=== PATIENT | female | born 1990 | race Caucasian/White ===

== ENCOUNTER 2024-06-10 14:42 | Observation (INO) | payer BC ==
[2024-06-10] MEDS ORDERED: NA CHLORIDE 0.9% 1,000 ML ONE (15:20)
[2024-06-10] MEDS ORDERED: KETOROLAC 30 MG/ML INJ ONE (15:20)
[2024-06-10] MEDS ORDERED: ONDANSETRON 4 MG/2 ML VIAL ONE ×2 (15:20→18:13)
[2024-06-10 15:24] LABS: Absolute Monocytes 0.9 K/uL (0.1-1.3); Absolute Neutrophil 14.7 K/uL (1.8-8.0); Basophils % 0.2 % (0-1.3); Eosinophils % 0.3 % (0-4.4); Hematocrit 39.9 % (36.0-45.0); Hemoglobin 13.7 g/dL (12.0-15.0); Lymphocytes % 5.9 % (15.3-44.8); MCH 31.5 pg (27.0-35.0); MCHC 34.3 g/dL (32.0-36.0); MCV 91.9 fL (80-100); MPV 8.2 fL (7.6-11.3); Monocytes % 5.5 % (3.3-12.3); Neutrophils % 88.1 % (41.7-73.7); Platelets 265 thou/uL (152-406); RBC Red Blood Cell Count 4.34 M/uL (3.86-4.86); Red Cell Distribution Width 12.4 % (12.1-15.2)
[2024-06-10 15:45] LABS: Albumin 3.9 g/dL (3.4-5.0); Albumin/Globulin Ratio 1.1 (1.1-1.8); Anion Gap 7.3 mEq/L (5.0-15.0); Bilirubin Total 1.8 mg/dL (0.2-1.0); Globulin 3.4 g/dL (2.3-3.5); Potassium 3.3 mEq/L (3.5-5.1); Protein, Total 7.3 g/dL (6.4-8.2)
[2024-06-10 16:13] LABS: Band Neutrophils 3 % (0-1); Differential Total Cells Count 100; Lymphocytes 5 % (15-42); Monocytes 10 % (0-10); Segmented Neutrophils 82 % (40-80); Toxic Granulation 1+
[2024-06-10 16:14] LABS: Blood Morphology Comment NOT SEEN (NOT SEEN); Platelet Estimate ADEQ
[2024-06-10 16:31] LABS: Specific Gravity 1.019 (1.005-1.030)
[2024-06-10 16:32] LABS: Specific Gravity 1.019 (1.005-1.030); Sqamous Epithelial <5 /HPF (None Seen); Urine Bacteria <20 /HPF (<20); Urine Bilirubin NEGATIVE (Negative); Urine Blood Negative (Negative); Urine Clarity Turbid (Clear); Urine Color Light-Yellow (Yellow); Urine Culture Reflex Order NOT NEEDED; Urine Glucose NEGATIVE (Negative); Urine Ketones TRACE (Negative); Urine Microscopic Reflex YN ORDER UMIC; Urine Mucus Slight /HPF (None Seen); Urine Nitrite NEGATIVE (Negative); Urine Protein NEGATIVE (Negative); Urine RBC <5 /HPF (None Seen); Urine Urobilinogen Normal (Normal); Urine WBC <5 /HPF (<5)
--- NOTE | 2024-06-10 16:39 | RAD REPORT ---
EXAMINATION: CT ABDOMEN AND PELVIS WITH CONTRAST CLINICAL INDICATION: ABD PAIN TECHNIQUE: CT abdomen and pelvis was performed, after the administration of IV contrast, as per [facility]. Axial, sagittal and coronal reconstructions were obtained. One or more of the following dose reduction techniques were used: Automated exposure control, adjustment of the mA and k V according to patient size, and iterative reconstruction. Unless otherwise specified, incidental findings do not require dedicated imaging follow-up. COMPARISON: No prior exam. FINDINGS: LOWER CHEST: The visualized lung bases are clear. LIVER: Normal in size and contour. No focal lesion. Cholelithiasis. SPLEEN: Normal size. No focal lesion. PANCREAS: No mass, ductal dilation, or carmen-pancreatic fluid. ADRENALS: Normal; no mass. KIDNEYS: Normal size and contour. No hydronephrosis. GASTROINTESTINAL TRACT: No evidence of free air, significant intra-abdominal free fluid, bowel obstru ction or abscess. APPENDIX: Appendix contains several appendicoliths as dilated to 12 mm. This is compatible with acut e appendicitis. LYMPH NODES: No lymphadenopathy. MUSCULOSKELETAL: No acute or suspicious osseous abnormality. ADDITIONAL FINDINGS: None. IMPRESSION: Acute appendicitis. Cholelithiasis.
[2024-06-10] MEDS ORDERED: NA CHLORIDE 0.9% 100 ML ONE (17:05)
[2024-06-10] MEDS ORDERED: PIPERACIL/TAZO 3.375 GM VIAL IV ONE (17:05)
--- NOTE | 2024-06-10 17:24 | EDPHYS ---
Physician Documentation [facility] Name: Celina Montano Age: 34 yrs Sex: Female : 1990 Arrival Date: 06/10/2024 Time: 14:42 Bed 9 Private MD: ED Physician Javid Ferrari HPI: 06/10 15:19 This 34 yrs old Female presents to ER via Ambulatory with complaints of Abdominal Pain. kb 15:19 Pt is a 34 year old female who presents for abd pain that started around 1030 this kb morning. States pain is causing nausea and making her feel like she is going to pass out. Denies vomiting, diarrhea, fever. States she has never had this pain before. . Historical: - Allergies: 15:02 Sulfa (Sulfonamide Antibiotics); cm10 - Home Meds: 14:59 BuSpar Oral [Active]; citalopram oral [Active]; cm10 - PMHx: 14:59 Depressive disorder; Anxiety; cm10 - Immunization history:: Adult Immunizations up to date. - Infectious Disease History:: Denies. - Social history:: Smoking status: Patient denies any tobacco usage or history of. ROS: 15:19 Constitutional: As per HPI kb Exam: 15:19 Head/Face: Normocephalic, atraumatic. ENT: Moist Mucous membranes Cardiovascular: kb Regular rate Respiratory: Respirations even and unlabored. No increased work of breathing. Talking in full sentences Skin: Warm, dry with normal turgor. Normal color. MS/ Extremity: Pulses equal, no cyanosis. Neurovascular intact. Full, normal range of motion. Neuro: Awake and alert, GCS 15, oriented to person, place, time, and situation. 15:19 Abdomen/GI: Inspection: abdomen appears normal, Bowel sounds: normal, Palpation: soft, in all quadrants, moderate abdominal tenderness, in the right lower quadrant, 15:21 Constitutional: The patient appears alert, awake, in obvious pain, kb Vital Signs: 14:58 BP 125 / 74; Pulse 81; Resp 18; Temp 97.7(TE); Pulse Ox 100% on R/A; Weight 72.57 kg; cm10 Height 5 ft. 4 in. ; Pain 9/10; 15:34 BP 127 / 78; Pulse 77; Resp 17; Pulse Ox 99% on R/A; rs5 18:20 BP 133 / 82; Pulse 80; Resp 17; Pulse Ox 99% on R/A; rs5 14:58 Body Mass Index 27.46 (72.57 kg, 162.56 cm) cm10 14:58 Pain Scale: Adult cm10 MDM: 14:44 Medical Screening Exam initiated kb 15:21 Data reviewed: vital signs, nurses notes. kb 16:49 Differential diagnosis: appendicitis, Ectopic , non-specific abd pain, Ovarian kb Torsion. Consideration of Admission/Observation Patient was admitted/placed on observation. Escalation of care including admission/observation considered. Counseling: I had a detailed discussion with the patient and/or guardian regarding the historical points, exam findings, and any diagnostic results supporting the discharge/admit diagnosis, lab results, radiology results, the need for further work-up and treatment in the hospital. 17:24 Management of patient was discussed with the following: Hospitalist: Dr Bell accepts pt kb for admission. Dobby Loom Fixer: Dr Weeks accepts pt for consult, will take to the OR. 06/10 15:02 Order name: CBC with Diff; Complete Time: 16:24 cm10 06/10 15:02 Order name: CMP; Complete Time: 15:52 cm10 06/10 15:02 Order name: Lipase; Complete Time: 15:52 cm10 06/10 15:02 Order name: Test, Urine; Complete Time: 16:34 cm10 06/10 15:02 Order name: Urinalysis w/ reflexes; Complete Time: 16:33 cm10 06/10 15:03 Order name: Test, Serum; Complete Time: 16:10 cm10 06/10 16:14 Order name: Manual Differential; Complete Time: 16:24 EDMS 06/10 18:27 Order name: CBC with Automated Diff EDMS 06/10 18:27 Order name: CBC with Automated Diff EDMS 06/10 18:27 Order name: Comprehensive Metabolic Panel EDMS 06/10 18:27 Order name: Comprehensive Metabolic Panel EDMS 06/10 18:27 Order name: Magnesium EDMS 06/10 18:27 Order name: Magnesium EDMS 06/10 18:27 Order name: Phosphorus EDMS 06/10 18:27 Order name: Phosphorus EDMS 06/10 15:02 Order name: CT Abd/Pelvis - IV Contrast Only; Complete Time: 16:46 cm10 06/10 18:27 Order name: CONS Physician Consult EDAL 06/10 15:02 Order name: IV Saline Lock; Complete Time: 15:19 cm10 06/10 15:02 Order name: Labs collected and sent; Complete Time: 15:19 cm10 06/10 16:49 Order name: NPO; Complete Time: 17:03 kb Administered Medications: 15:26 Drug: Ondansetron IVP 4 mg IVP once; over 2 minutes Route: IVP; Site: right antecubital;rs5 16:01 Follow up: Response: No adverse reaction rs5 15:26 Drug: NS 0.9% IV 1000 ml IV at 1 bolus Per protocol; to be given as a bolus over 60 rs5 minutes Route: IV; Rate: 1 bolus; Site: right antecubital; 16:33 Follow up: Response: No adverse reaction; IV Status: Completed infusion; IV Intake: rs5 1000ml 15:27 Drug: TORadol - Ketorolac IVP 15 mg IVP once Route: IVP; Site: right antecubital; rs5 16:01 Follow up: Response: No adverse reaction rs5 17:01 Drug: Piperacillin-Tazobactam IVPB 3.375 grams IVPB once over 60 mins; (mix in NS 100 rs5 mL) Route: IVPB; Infused Over: 60 mins; Site: right antecubital; 18:01 Follow up: Response: No adverse reaction rs5 Disposition: 06/11 07:43 Co-signature as Attending Physician, Javid Ferrari MD I reviewed the patient's care rn provided by the Advanced Practice Provider and agree with the diagnosis and treatment plan. Disposition Summary: 06/10/24 17:23 Hospitalization Ordered Notes: Hospitalization Status: Observation kb Provider: Minoo Bell Location: Telemetry/MedSurg (observation) kb Condition: Stable kb Problem: new kb Symptoms: are unchanged kb Bed/Room Type: Standard Room Assignment: kb Diagnosis - Unspecified acute appendicitis kb Forms: - Medication Reconciliation Form kb - SBAR form kb - Leadership Thank You Letter kb Signatures: Dispatcher [employer] [facility] Batsheva Rea FNP-C FNP-Javid Cole MD MD rn Sotelo, Ricky RN RN rs5 Liz Weeks RN RN cm10 Corrections: (The following items were deleted from the chart) 06/10 15:02 15:02 Abdomen Pelvis W Con+CT.RAD.BRZ ordered. EDMS EDMS 15:02 14:59 Allergies: No Known Allergies; cm10 cm10 15:21 15:19 Constitutional: This is a well developed, well nourished patient who is awake, kb alert, and in no acute distress. Head/Face: Normocephalic, atraumatic. ENT: Moist Mucous membranes Cardiovascular: Regular rate Respiratory: Respirations even and unlabored. No increased work of breathing. Talking in full sentences Skin: Warm, dry with normal turgor. Normal color. MS/ Extremity: Pulses equal, no cyanosis. Neurovascular intact. Full, normal range of motion. Neuro: Awake and alert, GCS 15, oriented to person, place, time, and situation. kb
--- NOTE | 2024-06-10 17:24 | ER ---
Nurse's Notes [facility] Name: Celina Montano Age: 34 yrs Sex: Female : 1990 Arrival Date: 06/10/2024 Time: 14:42 Bed 9 Private MD: Diagnosis: Unspecified acute appendicitis Presentation: 06/10 14:58 Chief complaint: Patient states: Abdominal pain that radiates up to the epigastric cm10 region onset this morning. Pt describes the pain as a sharp, burning, stabbing pain. Pt reports nausea. Coronavirus screen: Client denies travel out of the [place] in the last 14 days. Ebola Screen: Patient denies travel to an Ebola-affected area in the 21 days before illness onset. No symptoms or risks identified at this time. Initial Sepsis Screen: Does the patient meet any 2 criteria? No. Patient's initial sepsis screen is negative. Does the patient have a suspected source of infection? No. Patient's initial sepsis screen is negative. Risk Assessment: Do you want to hurt yourself or someone else? Patient reports no desire to harm self or others. Onset of symptoms was June 10, 2024. 14:58 Method Of Arrival: Ambulatory cm10 14:58 Acuity: ELMER 3 cm10 Triage Assessment: 15:00 General: Appears in no apparent distress. uncomfortable, Behavior is cooperative. cm10 Neuro: No deficits noted. Level of Consciousness is awake, alert, obeys commands, Oriented to person, place, time, situation, Appropriate for age. Respiratory: No deficits noted. Airway is patent Respiratory effort is even, unlabored, Respiratory pattern is regular, symmetrical. Historical: - Allergies: 15:02 Sulfa (Sulfonamide Antibiotics); cm10 - Home Meds: 14:59 BuSpar Oral [Active]; citalopram oral [Active]; cm10 - PMHx: 14:59 Depressive disorder; Anxiety; cm10 - Immunization history:: Adult Immunizations up to date. - Infectious Disease History:: Denies. - Social history:: Smoking status: Patient denies any tobacco usage or history of. Screenin:04 [place] ED Fall Risk Assessment (Adult) History of falling in the last 3 months, rs5 including since admission No falls in past 3 months (0 pts) Confusion or Disorientation No (0 pts) Intoxicated or Sedated No (0 pts) Impaired Gait No (0 pts) Mobility Assist Device Used No (0 pt) Altered Elimination No (0 pt) Score/Fall Risk Level 0 - 2 = Low Risk Oriented to surroundings, Maintained a safe environment. Abuse screen: Denies threats or abuse. Nutritional screening: No deficits noted. Tuberculosis screening: No symptoms or risk factors identified. Assessment: 15:05 General: Appears in no apparent distress. uncomfortable, Behavior is calm, cooperative. rs5 Pain: Complains of pain in abdomen Pain radiates to epigastric area Pain currently is 7 out of 10 on a pain scale. Quality of pain is described as aching, Pain began Is continuous. Neuro: Level of Consciousness is awake, alert, obeys commands, Oriented to person, place, time, situation. Cardiovascular: Patient's skin is warm and dry. Respiratory: Airway is patent Respiratory effort is even, unlabored, Respiratory pattern is regular, symmetrical. GI: Abdomen is round non-distended, Bowel sounds present X 4 quads. Abd is soft and non tender X 4 quads. : No signs and/or symptoms were reported regarding the genitourinary system. EENT: No signs and/or symptoms were reported regarding the EENT system. Derm: Skin is intact, Skin is pink, warm \T\ dry. Musculoskeletal: Range of motion: intact in all extremities. 15:34 Reassessment: Patient and/or family updated on plan of care and expected duration. Pain rs5 level reassessed. Patient is alert, oriented x 3, equal unlabored respirations, skin warm/dry/pink. 16:41 Reassessment: Patient and/or family updated on plan of care and expected duration. Pain rs5 level reassessed. Patient is alert, oriented x 3, equal unlabored respirations, skin warm/dry/pink. 17:39 Reassessment: Patient and/or family updated on plan of care and expected duration. Pain rs5 level reassessed. Patient is alert, oriented x 3, equal unlabored respirations, skin warm/dry/pink. 18:40 Reassessment: Patient and/or family updated on plan of care and expected duration. Pain rs5 level reassessed. Patient is alert, oriented x 3, equal unlabored respirations, skin warm/dry/pink. report given to OR nurse at bedside . Vital Signs: 14:58 BP 125 / 74; Pulse 81; Resp 18; Temp 97.7(TE); Pulse Ox 100% on R/A; Weight 72.57 kg; cm10 Height 5 ft. 4 in. ; Pain 9/10; 15:34 BP 127 / 78; Pulse 77; Resp 17; Pulse Ox 99% on R/A; rs5 18:20 BP 133 / 82; Pulse 80; Resp 17; Pulse Ox 99% on R/A; rs5 14:58 Body Mass Index 27.46 (72.57 kg, 162.56 cm) cm10 14:58 Pain Scale: Adult cm10 ED Course: 14:43 Patient arrived in ED. ra3 14:44 Batsheva Rea FNP-C is [facility]. kb 14:44 Javid Ferrari MD is Attending Physician. kb 14:59 Triage completed. cm10 15:00 Arm band placed on left wrist. Patient placed in waiting room. cm10 15:04 Patient has correct armband on for positive identification. Placed in gown. Bed in low rs5 position. Call light in reach. Side rails up X2. Client placed on continuous cardiac and pulse oximetry monitoring. NIBP monitoring applied. 15:11 Patient placed in an exam room, on a stretcher. ll1 15:12 Johnny Gross, RN is Primary Nurse. rs5 15:13 Radiology exam delayed due to lab results not completed at this time. (BUN/Creatinine). nj 15:13 Radiology exam delayed due to test not completed at this time. nj 15:13 Radiology exam delayed due to IV insertion attempt and/or patient not having nj appropriate IV at this time. 15:15 Inserted saline lock: 20 gauge in right antecubital area, using aseptic technique. rs5 Blood collected. Flushed with 10 mL NS. 15:15 No provider procedures requiring assistance completed. Patient maintains SpO2 rs5 saturation greater than 95% on room air. 16:20 CT Abd/Pelvis - IV Contrast Only In Process Unspecified. EDMS 17:23 Minoo Bell MD is Hospitalizing Provider. kb 18:40 Provided Education on: need for admit. rs5 18:40 Patient admitted, IV remains in place. rs5 Administered Medications: 15:26 Drug: Ondansetron IVP 4 mg IVP once; over 2 minutes Route: IVP; Site: right antecubital;rs5 16:01 Follow up: Response: No adverse reaction rs5 15:26 Drug: NS 0.9% IV 1000 ml IV at 1 bolus Per protocol; to be given as a bolus over 60 rs5 minutes Route: IV; Rate: 1 bolus; Site: right antecubital; 16:33 Follow up: Response: No adverse reaction; IV Status: Completed infusion; IV Intake: rs5 1000ml 15:27 Drug: TORadol - Ketorolac IVP 15 mg IVP once Route: IVP; Site: right antecubital; rs5 16:01 Follow up: Response: No adverse reaction rs5 17:01 Drug: Piperacillin-Tazobactam IVPB 3.375 grams IVPB once over 60 mins; (mix in NS 100 rs5 mL) Route: IVPB; Infused Over: 60 mins; Site: right antecubital; 18:01 Follow up: Response: No adverse reaction rs5 Medication: 15:34 VIS not applicable for this client. rs5 Intake: 16:33 IV: 1000ml; Total: 1000ml. rs5 Outcome: 17:23 Decision to Hospitalize by Provider. kb 18:40 Admitted to OR accompanied by nurse, with chart, rs5 18:40 Condition: stable 18:40 Instructed on the need for admit, Demonstrated understanding of instructions, 18:41 Patient left the ED. rs5 Signatures: Dispatcher [employer] EDMS Batsheva Rea, STATUE CARVER-C STATUE CARVER-[employer] Silverio Lynsay, RN RN ll1 Johnny Gross RN RN rs5 Liz Weeks RN RN 10 Sonam Omalley ra3 Corrections: (The following items were deleted from the chart) 15:02 14:59 Allergies: No Known Allergies; cm10 cm10
[2024-06-10] MEDS ORDERED: SUCCINYLCHOLINE 20 MG/ML (10 ML) IV ONE (18:05)
[2024-06-10] MEDS ORDERED: SUGAMMADEX SODIUM 200 MG/2 ML VIAL IV ONE (18:05)
[2024-06-10] MEDS ORDERED: ROCURONIUM 50 MG/5 ML VIAL IV ONE (18:13)
[2024-06-10] MEDS ORDERED: propofoL 200 MG/20 ML VIAL IV ONE (18:13)
[2024-06-10] MEDS ORDERED: FENTANYL CITR 100 MCG/2 ML ONE (18:13)
[2024-06-10] MEDS ORDERED: LIDOCAINE 2% MPF 5 ML VIAL ONE (18:13)
[2024-06-10] MEDS ORDERED: MIDAZOLAM HCL 2 MG/2 ML INJ ONE (18:14)
[2024-06-10] MEDS ORDERED: ACETAMINOPHEN 500 MG TAB PO PRN (18:22)
--- NOTE | 2024-06-10 18:28 | P.HP ---
Certification for Inpatient Patient admitted to: Observation With expected LOS: <2 Midnights Patient will require the following post-hospital care: None Practitioner: I am a practitioner with admitting privileges, knowledge of patient current condition, hospital course, and medical plan of care. Services: Services provided to patient in accordance with Admission requirements found in Title 42 Section 412.3 of the Code of Federal Regulations Patient History Date of Service: 06/10/24 Reason for admission: Abdominal pain History of Present Illness: Patient is a 34-year-old female who came to the hospital with abdominal discomfort. Pain was mainly in the right lower quadrant. Patient states that the pain had been out of the blue and she was having persistent nausea and vomiting. She drove to the emergency room and her pain was severe throughout the drive up to the hospital because there were numerous bumps. When she arrived to the emergency room, she was having severe nausea and vomiting and had to lay down flat to alleviate her pain. Imaging studies revealed acute appendicitis. Patient will be made n.p.o. for evaluation for laparoscopic appendectomy. Patient denies any medical history. No hypertension, no diabetes, no cardiac disease. Patient is low risk for any cardiopulmonary complications. - Past Medical/Surgical History Past Medical History: Patient denies medical history Past Surgical History: Patient denies surgical history - Family History Father Family History: Reviewed- Non-Contributory - Social History Smoking Status: Never smoker Alcohol use: No CD- Drugs: No Review of Systems 10-point ROS is otherwise unremarkable Physical Examination - Physical Exam General: Alert, In no apparent distress, Oriented x3 HEENT: Atraumatic, PERRLA, Mucous membr. moist/pink, EOMI, Sclerae nonicteric Neck: Supple, 2+ carotid pulse no bruit, No LAD, Without JVD or thyroid abnormality Respiratory: Clear to auscultation bilaterally, Normal air movement Cardiovascular: Regular rate/rhythm, Normal S1 S2 Gastrointestinal: Hypoactive, Tenderness, Rebound, Guarding Musculoskeletal: No clubbing, No swelling, No tenderness Integumentary: No rashes Neurological: Normal gait, Normal speech, Normal strength at 5/5 x4 extr, Normal tone, Sensation intact, Cranial nerves 3-12 intact, Normal affect Lymphatics: No axilla or inguinal lymphadenopathy - Studies Laboratory Data (last 24 hrs) 06/10/24 06/10/24 15:17 15:17 WBC 16.70 H Hgb 13.7 Hct 39.9 Plt Count 265 Sodium 136 Potassium 3.3 L BUN 12 Creatinine 0.76 Glucose 146 H Total Bilirubin 1.8 H AST 17 ALT 18 Alkaline Phosphatase 56 Lipase 44 Assessment & Plan - Problems (Diagnosis) (1) Acute appendicitis Current Visit: Yes Status: Acute - Plan Plan: 1. IV fluids 2. IV antibiotics 3. Pain control 4. N.p.o. until after surgery. Diet as tolerated afterwards if okay with surgery 5. GI DVT prophylaxis Discharge Plan: Home Plan to discharge in: 24 Hours - Advance Directives Does patient have a Living Will: No Does patient have a Durable POA for Healthcare: No - Code Status/Comfort Care Code Status Assessed: Yes Code Status: Full Code Critical Care: No Time Spent Managing PTS Care (In Minutes): 45
[2024-06-10] MEDS ORDERED: HYDROMORPHONE HCL 0.5 MG/0.5 ML INJ IV PRN (18:38)
[2024-06-10] MEDS: Ringers Lactate 1,000 ML IV ONE (18:42)
--- NOTE | 2024-06-10 19:55 | P.BOP ---
Preoperative diagnosis: acute appendicitis, tender umbilical hernia Postoperative diagnosis: same Primary procedure: 1. Laparoscopic appendectomy Secondary procedure: 2. Open repair of umbilical hernia Estimated blood loss: K<10cc Specimen: sac, rabia Findings: as above Anesthesia: General Complications: None Transferred to: Recovery Room Condition: Good
[2024-06-10] MEDS: MEPERIDINE HCL 25 MG/ML SYR ONE (20:15)
[2024-06-10 20:44] VITALS: BMI 27.3
[2024-06-10] MEDS: ONDANSETRON 4 MG/2 ML VIAL IV PRN (20:55)
[2024-06-10] MEDS: NA CHLORIDE 0.9% 1,000 ML IV SCH (20:58)
--- NOTE | 2024-06-10 23:31 | CON ---
Date of Consultation: 06/10/2024 Reason For Service: Acute appendicitis. History Of Present Illness: This is a case of a 34-year-old patient with history of anxiety, comes t o us with nausea, vomiting, abdominal pain that started at 10 o'clock this morning and got worse to t he point that she came to the ER. She denies eating anything out of the usual. Denies any family me mber sick at home. Past Medical History: Include depression and anxiety. Family History: Noncontributory. Social History: She does not smoke. She does not drink alcohol. Allergies: SULFA. Review of Systems: Nausea, vomiting, abdominal pain. Physical Examination: Vital Signs: Reviewed. General: The patient is awake, alert. Eyes: Pupils are equal and reactive. Anicteric. Neck: Supple. Chest: Clear. Heart: S1, S2. Abdomen: Right lower quadrant tenderness with Rovsing sign positive. Psoas signs positive. Breasts: Deferred. Pelvic: Deferred. Rectal: Deferred. Extremities: Good capillary refill. Laboratory Data: Blood work shows WBC count of 16.7, potassium 3.3. CAT scan of the abdomen and pel vis shows, per Dr. Judge, radiologist, appendix with several appendicoliths, dilated, compatible with acute appendicitis. Assessment: This is a 34-year-old patient with acute appendicitis. The benefits, alternatives, and risks of laparoscopic, possible open appendectomy were fully explained, which include, but not limite d to, infection, bleeding, damage to adjacent structures, anesthesia complication, negative appendix, PA, and even . She also understands this may not relieve the symptoms. She might need more th an one surgical intervention. She understood, signed the consent. The patient was booked emergently in the OR. AILYN/DORON Voice ID: [id number] Report ID: [id number]
[2024-06-11] MEDS: PIPER TAZO 3.375 GM in NA CHLORIDE 0.9% 100 ML IV SCH (00:13)
[2024-06-11] MEDS: BUSPIRONE HCL 15 MG TABLET PO ONE (02:13)
[2024-06-11] MEDS: HYDROCODONE/APAP 5/325 MG TAB PO PRN (04:28)
--- NOTE | 2024-06-11 05:13 | OP ---
Date of Procedure: 06/10/2024 Surgeon: Deion Weeks MD Preoperative Diagnoses: Acute appendicitis, tender umbilical hernia. Postoperative Diagnoses: Acute appendicitis, tender umbilical hernia. Procedure: Laparoscopic appendectomy, open repair of tender umbilical hernia. Estimated Blood Loss: Less than 10 cc. Specimens: Hernia sac and appendix. Findings: Acute appendicitis, also umbilical hernia with incarcerated omentum. Anesthesia: General plus local. Complications: None. Indications: This is a case of a 34-year-old patient who comes with acute abdominal pain, diagnosed with acute appendicitis and also umbilical hernia. The benefits, alternatives, and risks of laparosc opic, possible open appendectomy and umbilical hernia repair were fully explained, which include, but not limited to, infection, bleeding, damage to adjacent structures, anesthesia complication, CA, and even . She also understands this may not relieve any symptoms. She might need more than one s urgical intervention. She understood, signed a consent. Procedure In Detail: The patient was brought to the operating room, placed in supine position. Anes thesia was done without complication. Abdominal area was prepped and draped in a sterile fashion. T hyun-out was called. Local anesthesia was applied after time-out. An incision was made in the perium bilical region. The patient had a hernia there that was tender and she wanted to repair at the same t hyun, so we the hernia sac from umbilical skin, removed the hernia sac, cleaned the fascial edges, put Vicryl #1 inside the fascia. Leslie trocar was carefully introduced. No bleeding was obt ained. I placed 2 more trocars, 5 mm each one of them in the left lower quadrant and suprapubic area . This allowed me to visualize the appendix, it was partially retrocecal, so using the LigaSure, we were able to mobilize part of the cecum and the appendix to be able to accommodate. We took the meso appendix with the help of LigaSure too. Once we had the base of appendix exposed, we proceeded then to transect that with the Endo TARYN 45 mm, nonvascular. Appendix was removed from abdominal cavity us ing the Endo Catch through the umbilical incision. Everything was inspected once again. No bowel le ak. No bleeding. After irrigation was done, suction was done. No bleeding. At that moment, I proc eeded to remove the trocars under direct vision, deflated pneumoperitoneum, closed the fascia with #1 Vicryl and the umbilical hernia was also closed with #1 Vicryl. Irrigated subcutaneous tissue, clos ed that with 3-0 chromic and the skin with benji. Sponge count and instrument counts were correct. The patient tolerated procedure well. The patient was on her way to recovery in stable condition. AILYN/DORON Voice ID: [id number] Report ID: [id number]
[2024-06-11 05:23] LABS: Absolute Basophils 0.1 K/uL (0-0.5); Absolute Eosinophils 0.1 K/uL (0-0.5); Absolute Lymphocytes (CBC) 1.2 K/uL (0.7-4.9); Absolute Monocytes 0.8 K/uL (0.1-1.3); Absolute Neutrophil 8.9 K/uL (1.8-8.0); Basophils % 0.5 % (0-1.3); Eosinophils % 0.6 % (0-4.4); Hematocrit 32.6 % (36.0-45.0); Hemoglobin 11.6 g/dL (12.0-15.0); Lymphocytes % 10.8 % (15.3-44.8); MCH 32.7 pg (27.0-35.0); MCHC 35.6 g/dL (32.0-36.0); MPV 8.2 fL (7.6-11.3); Monocytes % 7.5 % (3.3-12.3); Neutrophils % 80.6 % (41.7-73.7); Nucleated Red Blood Cells % 0.1 % (0-0); Platelets 220 thou/uL (152-406); RBC Red Blood Cell Count 3.54 M/uL (3.86-4.86); Red Cell Distribution Width 12.5 % (12.1-15.2)
[2024-06-11 05:39] LABS: Albumin 2.7 g/dL (3.4-5.0); Alkaline Phosphatase 47 U/L (45-117); Anion Gap 2.4 mEq/L (5.0-15.0); BUN Blood Urea Nitrogen 13 mg/dL (7-18); Bicarbonate 25 mEq/L (21-32); Bilirubin Total 1.8 mg/dL (0.2-1.0); Globulin 2.7 g/dL (2.3-3.5); Glomerular Filtration Rate 113 ml/min (=/>90); Glucose Level 107 mg/dL (74-106); Magnesium 1.9 mg/dL (1.6-2.4); Phosphorus 2.8 mg/dL (2.5-4.9); Potassium 3.4 mEq/L (3.5-5.1); Protein, Total 5.4 g/dL (6.4-8.2); Sodium Level 137 mEq/L (136-145)
[2024-06-11 05:47] LABS: ALT/SGPT < 14 U/L (13-56); AST/SGOT < 10 U/L (15-37)
[2024-06-11] MEDS ORDERED: FLU (Fluarix Triv) TS24-25(6MOS UP)/PF 45 MCG/0.5 ML Syringe IM ONE ×2 (07:30→14:00)
--- NOTE | 2024-06-11 07:38 | P.DS ---
Admission Date: 06/10/24 Discharge Date: 06/11/24 Disposition: ROUTINE DISCHARGE Discharge Condition: GOOD Reason for Admission: Abdominal pain Brief History of Present Illness: 34-year-old female who came to the hospital with abdominal discomfort. Pain was mainly in the right lower quadrant. Patient states that the pain had been out of the blue and she was having persistent nausea and vomiting. She drove to the emergency room and her pain was severe throughout the drive up to the hospital because there were numerous bumps. When she arrived to the emergency room, she was having severe nausea and vomiting and had to lay down flat to alleviate her pain. Imaging studies revealed acute appendicitis. Patient will be made n.p.o. for evaluation for laparoscopic appendectomy. - Physical Exam General: Alert, In no apparent distress, Oriented x3 HEENT: Atraumatic, PERRLA, Mucous membr. moist/pink, EOMI, Sclerae nonicteric Neck: Supple, 2+ carotid pulse no bruit, No LAD, Without JVD or thyroid abnormality Respiratory: Clear to auscultation bilaterally, Normal air movement Cardiovascular: Regular rate/rhythm, Normal S1 S2 Gastrointestinal: Hypoactive, Tenderness, Musculoskeletal: No clubbing, No swelling, No tenderness Integumentary: No rashes Neurological: Normal gait, Normal speech, Normal strength at 5/5 x4 extr, Normal tone, Sensation intact, Lymphatics: No axilla or inguinal lymphadenopathy Hospital Course: 34-year-old female who came to the hospital with abdominal discomfort. Pain was mainly in the right lower quadrant. Patient states that the pain had been out of the blue and she was having persistent nausea and vomiting. She drove to the emergency room and her pain was severe throughout the drive up to the hospital because there were numerous bumps. When she arrived to the emergency room, she was having severe nausea and vomiting and had to lay down flat to alleviate her pain. Imaging studies revealed acute appendicitis. Patient will be made n.p.o. for evaluation for laparoscopic appendectomy. Tolerating diet, stable to discharge home, follow-up with surgery after discharge Assessment Abdominal pain, acute appendicitis, tender umbilical hernia,-Discharge home on po antibitics- 06/11 Status post laparoscopic appendectomy, open repair of umbilical hernia Dr. Weeks No heavy lifting greater than 10 pounds No operating or driving heavy equipment while under the influence of anesthesia, as needed analgesics May need stool softeners for constipation secondary to as needed analgesics Continue home medicines as previously prescribed GOAL: Clear understanding of disease process INSTRUCTIONS: Physician Discharge Instructions: -Follow up with surgery, call office apt -Follow-up with PCP in 1 to 2 weeks -Please call Dr. Bell at [phone] if any questions regarding hospital stay -Please call nursing station at [phone] if any nursing or medication questions -Return to the emergency room if symptoms worsen Diet: ADA, low sodium Activity: Fall precautions Vital Signs/Physical Exam: Temp Pulse Resp BP Pulse Ox 97.6 F 90 18 137/62 98 06/11/24 04:00 06/11/24 04:00 06/11/24 05:28 06/11/24 04:00 06/11/24 04:00 Laboratory Data at Discharge: WBC 11.00 thou/uL (4.3-10.9) H 06/11/24 05:12 Hgb 11.6 g/dL (12.0-15.0) L D 06/11/24 05:12 Hct 32.6 % (36.0-45.0) L 06/11/24 05:12 Plt Count 220 thou/uL (152-406) 06/11/24 05:12 Sodium 137 mEq/L (136-145) 06/11/24 05:12 Potassium 3.4 mEq/L (3.5-5.1) L 06/11/24 05:12 BUN 13 mg/dL (7-18) 06/11/24 05:12 Creatinine 0.71 mg/dL (0.55-1.02) 06/11/24 05:12 Glucose 107 mg/dL (74-106) H 06/11/24 05:12 Phosphorus 2.8 mg/dL (2.5-4.9) 06/11/24 05:12 Magnesium 1.9 mg/dL (1.6-2.4) 06/11/24 05:12 Total Bilirubin 1.8 mg/dL (0.2-1.0) H 06/11/24 05:12 AST < 10 U/L (15-37) L 06/11/24 05:12 ALT < 14 U/L (13-56) 06/11/24 05:12 Alkaline Phosphatase 47 U/L (45-117) 06/11/24 05:12 Lipase 44 U/L (13-75) 06/10/24 15:17 Home Medications: Buspirone HCl 7.5 mg PO BID 06/10/24 Citalopram [Celexa*] 40 mg PO DAILY 06/10/24 Amox/Clavulanate [Augmentin 875-125 Tab] 1 each PO BID 14 Days #7 tab 06/11/24 Hydrocodone 5/APAP 325 [[place] 5/325*] 1 tab PO Q4H PRN #30 tab 06/11/24 New Medications: Amox/Clavulanate [Augmentin 875-125 Tab] 1 each PO BID 14 Days #7 tab Hydrocodone 5/APAP 325 [[place] 5/325*] 1 tab PO Q4H PRN #30 tab PRN Reason: Pain Scale 5-7 (Moderate) Physician Discharge Instructions: 34-year-old female who came to the hospital with abdominal discomfort. Pain was mainly in the right lower quadrant. Patient states that the pain had been out of the blue and she was having persistent nausea and vomiting. She drove to the emergency room and her pain was severe throughout the drive up to the hospital because there were numerous bumps. When she arrived to the emergency room, she was having severe nausea and vomiting and had to lay down flat to alleviate her pain. Imaging studies revealed acute appendicitis. Patient will be made n.p.o. for evaluation for laparoscopic appendectomy. Tolerating diet, stable to discharge home, follow-up with surgery after discharge Assessment Abdominal pain, acute appendicitis, tender umbilical hernia, continue home antibitics until gone 06/11 Status post laparoscopic appendectomy, open repair of umbilical hernia Dr. Weeks No heavy lifting greater than 10 pounds No operating or driving heavy equipment while under the influence of anesthesia, as needed analgesics May need stool softeners for constipation secondary to as needed analgesics Continue home medicines as previously prescribed GOAL: Clear understanding of disease process INSTRUCTIONS: Physician Discharge Instructions: -follow up with surgery, call office for apt -Follow-up with PCP in 1 to 2 weeks -Please call Dr. Bell at [phone] if any questions regarding hospital stay -Please call nursing station at [phone] if any nursing or medication questions -Return to the emergency room if symptoms worsen Diet: ADA, low sodium Activity: Fall precautions Activity: No lifting more than 10 lbs Followup: NONE,NONE [Primary Care Provider] - Deion Weeks MD [ACTIVE - CAN ADMIT] - Time spent managing pt's care (in minutes): 55
[2024-06-11] MEDS: POTASSIUM CL SA 10 MEQ TAB PO ONE (07:55)
[2024-06-11] MEDS: CITALOPRAM 10 MG TABLET PO SCH (07:55)
[2024-06-11] MEDS ORDERED: ENOXAPARIN 40 MG/0.4 ML SQ SCH (09:00)
[2024-06-11] MEDS: BUSPIRONE HCL 15 MG TABLET PO SCH (09:04)
[2024-06-11 12:38] VITALS: O2SAT 99
[2024-06-11 12:42] VITALS: BP 108/59; TEMP 98.1
--- NOTE | 2024-06-11 19:13 | PN ---
Date of Progress Note: 06/11/2024 Subjective: Status post acute appendicitis, doing well. No complaint. Tolerating diet. Objective: CHEST: Clear. ABDOMEN: Soft and depressible. EXTREMITIES: Good capillary refill. Intact surgical site. Laboratory Data: WBC count decreased. Plan: From the surgical standpoint, she can go home with p.o. antibiotics and pain medication. No h eavy lifting, no more than 20 pounds, and follow up in my office in a week. Keep area dry until esther rrow. AILYN/DORON Voice ID: [id number] Report ID: [id number]
[2024-06-11] MEDS ORDERED: BUSPIRONE HCL 5 MG TABLET PO SCH (21:00)
== END 2024-06-11 15:53 | disposition home or self-care (01) ==
LOC: ER 14:42 → ERHOLD 18:22 → 2ND 20:12
PROVIDERS: ADMIT Hospitalist; ATTEND Hospitalist
PROC: 0DTJ4ZZ Resection of Appendix, Percutaneous Endoscopic Approach (ICD-10-PCS; principal; 2024-06-11)
PROC: 0WQF0ZZ Repair Abdominal Wall, Open Approach (ICD-10-PCS; 2024-06-11)
DX: K35.80 Unspecified acute appendicitis (principal); K42.0 Umbilical hernia with obstruction, without gangrene; R10.11 Right upper quadrant pain; R11.2 Nausea with vomiting, unspecified; F41.9 Anxiety disorder, unspecified; Z88.2 Allergy status to sulfonamides
CPT/HCPCS: 44950; 96361; 85025 ×2; 81001; 36415; 83735; 84703; 81025; 84100; 88302; 88304; 83690; 80053 ×2; 74177; 94010; 96375; 96374; 99285; 49592; Q9967; J2704; J2543 ×3; J2003; J2250; J3010; J2175; J2405 ×3; G0378 ×5; J7120; J7030 ×3